=== PATIENT | female | born 1945 | race Caucasian/White ===

== ENCOUNTER 2020-08-25 05:49 | Inpatient (IN) | payer OTHER ==
[2020-08-19 12:03] VITALS: BMI 24.7
[2020-08-25] MEDS ORDERED: TRANEXAMIC ACID 1000 MG/10 ML VIAL IVPUSH ONE (06:11)
[2020-08-25] MEDS ORDERED: VANCOMYCIN 1,000 MG in DEXTROSE 5%-WATER - 250 ML IVPB ONE (06:11)
[2020-08-25] MEDS ORDERED: CEFAZOLIN 2 GM in DEXTROSE 5%-WATER - 100 ML IVPB ONE (06:11)
[2020-08-25] MEDS ORDERED: TRANEXAMIC ACID 1000 MG/10 ML VIAL ONE ×2 (06:55→10:12)
[2020-08-25] MEDS ORDERED: PROPOFOL 20 ML ONE ×4 (06:55)
[2020-08-25] MEDS ORDERED: MIDAZOLAM HCL 2 MG/2 ML SINGLE DOSE VIAL ONE ×2 (06:56→08:23)
[2020-08-25] MEDS ORDERED: SUCCINYLCHOLINE CHLORIDE 200 MG/10 ML SYRINGE ONE (06:56)
[2020-08-25] MEDS ORDERED: LIDOCAINE HCL/PF 2% SDV 5ML VIAL ONE (06:57)
[2020-08-25] MEDS ORDERED: BUPIVACAINE LIPOSOME/PF (EXPAREL) 266 MG/20 ML VIAL ONE (06:57)
[2020-08-25] MEDS ORDERED: SODIUM CHLORIDE 0.9% P/F 10 ML VIAL IJ ONE (06:57)
[2020-08-25] MEDS ORDERED: ONDANSETRON 4 MG/2 ML VIAL ONE ×2 (09:33→12:22)
[2020-08-25] MEDS ORDERED: CLINDAMYCIN PHOSPHATE 600 MG/4 ML VIAL ONE (10:12)
[2020-08-25] MEDS ORDERED: ONDANSETRON 4 MG/2 ML VIAL IVPUSH PRN ×2 (10:19→11:26)
[2020-08-25] MEDS ORDERED: oxyCODONE HCL 5 MG TABLET PO PRN ×3 (10:21→14:50)
[2020-08-25] MEDS ORDERED: LACTATED RINGERS SOLUTION 1,000 ML IV SCH ×2 (10:30→11:30)
[2020-08-25] MEDS ORDERED: MAG HYDROX/AL HYDROX/SIMETH 30 ML UNIT-DOSE CUP PO PRN (11:26)
[2020-08-25] MEDS ORDERED: MAGNESIUM HYDROX 2400MG/30ML ORAL SUSPENSION 30 ML CUP PO PRN (11:26)
[2020-08-25] MEDS ORDERED: ALBUTEROL SO4 HFA INHALER IH PRN (11:32)
[2020-08-25] MEDS ORDERED: MONTELUKAST NA 10 MG TABLET PO PRN (11:32)
[2020-08-25] MEDS: ACETAMINOPHEN 1000 MG/100 ML BAG IVPB ONE ×2 (11:40→14:12)
[2020-08-25] MEDS ORDERED: diazePAM 5 MG TABLET PO PRN (14:37)
[2020-08-25] MEDS ORDERED: HYDROmorphone HCl 2 MG/ML VIAL IVPB PRN (14:47)
[2020-08-25] MEDS: INSULIN (NOVOLOG) ASPART 100 UNITS/ML 10ML VIAL SQ SCH ×2 (17:26→22:55)
[2020-08-25] MEDS: ACETAMINOPHEN 325 MG TABLET (FP) PO SCH (17:37)
[2020-08-25] MEDS ORDERED: VANCOMYCIN 1 GRAM (PRE-DOCKED) 1,000 MG/250 ML BAG IVPB ONE (20:00)
[2020-08-25] MEDS ORDERED: LOCK ITEM NR ONE ×2 (20:50→21:05)
[2020-08-25] MEDS: oxyCODONE HCL 5 MG TABLET PO PRN (21:29)
[2020-08-25] MEDS: DOCUSATE SODIUM 100 MG CAPSULE (FP) PO SCH (21:29)
[2020-08-25] MEDS: AMITRIPTYLINE HCL 25 MG TABLET PO SCH (21:30)
[2020-08-25] MEDS: amLODIPine BESYLATE 2.5 MG TABLET (FP) PO SCH (21:30)
[2020-08-25] MEDS: oxyCODONE HCL 10 MG SUSTAINED ACTING TABLET PO SCH (21:30)
[2020-08-25] MEDS: FERROUS SO4 325 MG TABLET (FP) PO SCH (21:30)
[2020-08-25] MEDS: ATORVASTATIN CA 80 MG TABLET (FP) PO SCH (21:30)
[2020-08-25] MEDS: SENNOSIDES/DOCUSATE COMBO (SENNA PLUS) TABLET (UD) PO SCH (21:31)
[2020-08-25] MEDS ORDERED: ASPIRIN COATED 81 MG TABLET.EC PO SCH (22:00)
[2020-08-26] MEDS: ACETAMINOPHEN 325 MG TABLET (FP) PO SCH ×4 (00:08→18:46)
[2020-08-26] MEDS: INSULIN (NOVOLOG) ASPART 100 UNITS/ML 10ML VIAL SQ SCH ×4 (06:59→21:06)
[2020-08-26] MEDS ORDERED: glipiZIDE-XL 5 MG TAB.ER.24 PO SCH (07:00)
[2020-08-26 08:14] LABS: HEMATOCRIT 25.3 % (32.4-45.2); HEMOGLOBIN 7.8 GM/dl (10.7-15.3); MCH 26.9 pg (25.7-33.7); MEAN CELL VOLUME 86.8 fl (80-96); MEAN PLT VOLUME 8.5 fl (7.5-11.1); PLATELET COUNT 254 K/MM3 (134-434); RBC 2.91 M/mm3 (3.60-5.2); RDW 14.3 % (11.6-15.6); WHITE BLOOD COUNT 7.6 K/mm3 (4.0-10.8)
[2020-08-26 08:16] LABS: CALCIUM 9.8 mg/dl (8.5-10)
[2020-08-26] MEDS: SENNOSIDES/DOCUSATE COMBO (SENNA PLUS) TABLET (UD) PO SCH ×2 (09:36→21:05)
[2020-08-26] MEDS: DOCUSATE SODIUM 100 MG CAPSULE (FP) PO SCH ×2 (09:36→21:05)
[2020-08-26] MEDS: AMITRIPTYLINE HCL 25 MG TABLET PO SCH ×2 (09:36→21:05)
[2020-08-26] MEDS: amLODIPine BESYLATE 2.5 MG TABLET (FP) PO SCH ×2 (09:37→21:05)
[2020-08-26] MEDS: FERROUS SO4 325 MG TABLET (FP) PO SCH ×2 (09:37→21:05)
[2020-08-26] MEDS: ENOXAPARIN NA (PORCINE) 30 MG/0.3 ML DISP.SYRIN SQ SCH ×2 (09:37→21:05)
[2020-08-26] MEDS: MULTIVITAMINS (DAILY MVI) TABLET (FP) PO SCH (09:37)
[2020-08-26] MEDS: PANTOPRAZOLE 40 MG TABLET PO SCH (09:37)
[2020-08-26] MEDS: oxyCODONE HCL 10 MG SUSTAINED ACTING TABLET PO SCH (09:38)
[2020-08-26] MEDS ORDERED: PATIENT'S OWN MEDICATION (NON-FORMULARY) (Fexofenadine/Pseudoephedrine [Allegra-D 24 Hour PO SCH (10:00)
[2020-08-26] MEDS: diazePAM 5 MG TABLET PO PRN (16:06)
[2020-08-26] MEDS: ATORVASTATIN CA 80 MG TABLET (FP) PO SCH (21:05)
[2020-08-27] MEDS: ACETAMINOPHEN 325 MG TABLET (FP) PO SCH ×3 (00:28→11:44)
[2020-08-27] MEDS: diazePAM 5 MG TABLET PO PRN (00:48)
[2020-08-27] MEDS: oxyCODONE HCL 5 MG TABLET PO PRN (02:22)
[2020-08-27] MEDS: INSULIN (NOVOLOG) ASPART 100 UNITS/ML 10ML VIAL SQ SCH ×2 (07:16→11:42)
[2020-08-27 08:11] LABS: HEMATOCRIT 26.2 % (32.4-45.2); HEMOGLOBIN 8.1 GM/dl (10.7-15.3); MCH 27.4 pg (25.7-33.7); MEAN CELL VOLUME 88.4 fl (80-96); MEAN PLT VOLUME 8.8 fl (7.5-11.1); PLATELET COUNT 269 K/MM3 (134-434); RBC 2.97 M/mm3 (3.60-5.2); RDW 14.5 % (11.6-15.6); WHITE BLOOD COUNT 10.4 K/mm3 (4.0-10.8)
[2020-08-27] MEDS: PANTOPRAZOLE 40 MG TABLET PO SCH (09:02)
[2020-08-27] MEDS: AMITRIPTYLINE HCL 25 MG TABLET PO SCH (09:02)
[2020-08-27] MEDS: MULTIVITAMINS (DAILY MVI) TABLET (FP) PO SCH (09:02)
[2020-08-27] MEDS: amLODIPine BESYLATE 2.5 MG TABLET (FP) PO SCH (09:02)
[2020-08-27] MEDS: FERROUS SO4 325 MG TABLET (FP) PO SCH (09:02)
[2020-08-27] MEDS: SENNOSIDES/DOCUSATE COMBO (SENNA PLUS) TABLET (UD) PO SCH (09:02)
[2020-08-27] MEDS: ENOXAPARIN NA (PORCINE) 30 MG/0.3 ML DISP.SYRIN SQ SCH (09:02)
[2020-08-27] MEDS: DOCUSATE SODIUM 100 MG CAPSULE (FP) PO SCH (09:02)
[2020-08-27 09:10] VITALS: TEMP 98.8
[2020-08-27 11:51] VITALS: BP 146/91; PULSE 79
== END 2020-08-27 12:43 | disposition home or self-care (01) | DRG 470 ==
LOC: FM/S 05:49
PROVIDERS: ADMIT Orthopaedic Surgery Orthopaedic Surgery of the Spine; ATTEND Nurse Practitioner Acute Care
PROC: 0SRC0J9 Replacement of Right Knee Joint with Synthetic Substitute, Cemented, Open Approach (ICD-10-PCS; principal; 2020-08-25)
DX: M17.11 Unilateral primary osteoarthritis, right knee (principal); N18.4 Chronic kidney disease, stage 4 (severe); I12.9 Hypertensive chronic kidney disease with stage 1 through stage 4 chronic kidney disease, or unspecified chronic kidney disease; E11.22 Type 2 diabetes mellitus with diabetic chronic kidney disease; Z88.0 Allergy status to penicillin; Z79.84 Long term (current) use of oral hypoglycemic drugs
CPT/HCPCS: 36415; 73560-TC-RT-FY; 80048; 82962; 85027; 88304-TC; 88311-TC; 94760; 97010-GP; 97116-GP; 97162-GP; J0131